=== PATIENT | male | born 1980 | race Caucasian/White ===

== ENCOUNTER → 2019-01-04 | Outpatient (CLI) | payer BC ==
[~2019-01-04] MED LIST: PRILOSEC 20MG20 MG PO; SAVELLA25 MG PO; THERAPEUTIC VIT1 CAP PO; VITAMIN C BUFF500 MG PO; VITAMIN E1000 U/CAP PO
== END ==
LOC: SUN.DIA 08:16
DX: E11.40 Type 2 diabetes mellitus with diabetic neuropathy, unspecified (principal); E78.5 Hyperlipidemia, unspecified; I10 Essential (primary) hypertension; E66.9 Obesity, unspecified
CPT/HCPCS: G0108

== ENCOUNTER → 2019-01-30 | Outpatient (CLI) | payer BC | LOC: DIA.ED 10:13 → SUN.DIA 10:34 → DIA.ED 14:58 | DX: E11.40 Type 2 diabetes mellitus with diabetic neuropathy, unspecified (principal); E78.5 Hyperlipidemia, unspecified; I10 Essential (primary) hypertension; E66.9 Obesity, unspecified | CPT/HCPCS: G0108 ==

== ENCOUNTER → 2019-02-28 | Outpatient (CLI) | payer BC | LOC: DIA.ED 13:33 | DX: E11.9 Type 2 diabetes mellitus without complications (principal); E78.5 Hyperlipidemia, unspecified; I10 Essential (primary) hypertension; E11.40 Type 2 diabetes mellitus with diabetic neuropathy, unspecified; E66.9 Obesity, unspecified | CPT/HCPCS: G0108 ==

== ENCOUNTER → 2019-04-24 | Outpatient (CLI) | payer BC | LOC: COL.PUL 11:07 | DX: R06.02 Shortness of breath (principal) ==

== ENCOUNTER → 2019-05-25 | Outpatient (CLI) | payer BC | LOC: COL.RAD 08:03 | DX: Z01.812 Encounter for preprocedural laboratory examination (principal); J34.89 Other specified disorders of nose and nasal sinuses; J45.909 Unspecified asthma, uncomplicated; R51 Headache | CPT/HCPCS: A9585 ==

== ENCOUNTER → 2019-06-12 | Outpatient (CLI) | payer BC | LOC: COL.RAD 06-08 13:15 | DX: N20.1 Calculus of ureter (principal) ==

== ENCOUNTER → 2020-03-20 | Outpatient (CLI) | payer BC | LOC: COL.VAS 12:41 | DX: I31.3 Pericardial effusion (noninflammatory) (principal); I51.7 Cardiomegaly ==